=== PATIENT | male | born 1950 | race Caucasian/White ===

== ENCOUNTER 2017-04-24 06:13 | Day surgery (SDC) | payer OTHER, BC ==
[2017-04-23 12:48] VITALS: BMI 29.1
[2017-04-24 06:55] VITALS: TEMP 97.7
[2017-04-24] MEDS ORDERED: LIDOCAINE HCL 2% (20ML MULTI-DOSE VIAL) NR ONE (07:13)
[2017-04-24] MEDS ORDERED: MIDAZOLAM HCL 2 MG/2 ML SINGLE DOSE VIAL ONE (07:38)
[2017-04-24] MEDS ORDERED: PROPOFOL 20 ML ONE (07:43)
[2017-04-24] MEDS ORDERED: SUCCINYLCHOLINE CHLORIDE 200 MG/10 ML VIAL ONE (07:44)
[2017-04-24] MEDS ORDERED: LIDOCAINE HCL 2% (50ML VIAL) INF ONE (08:17)
[2017-04-24 08:30] VITALS: PULSE 58
[2017-04-24 08:51] VITALS: BP 110/70
--- NOTE | 2017-04-29 11:31 | OP ---
DATE OF OPERATION: 04/24/2017 PREOPERATIVE DIAGNOSIS: Left carpal tunnel syndrome. POSTOPERATIVE DIAGNOSIS: Left carpal tunnel syndrome. OPERATIVE PROCEDURE: Left carpal tunnel release. ANESTHESIA: Local with sedation. COMPLICATIONS: None. ESTIMATED BLOOD LOSS: Minimal. INDICATIONS FOR PROCEDURE: The patient is a 67-year-old male with the above findings indicated for operative treatment. Risks, benefits, and alternatives were discussed with the patient at length. Proper informed consent was obtained. DESCRIPTION OF PROCEDURE: After proper identification of patient and correct operative site, the patient was brought to the operating room and placed supine on the table with prominences well padded. Sedation was given by the anesthesiologist. Local anesthesia was given with 2% lidocaine. Left upper extremity was prepped and draped in a sterile fashion. A well-padded tourniquet was placed with sterile prep. Esmarch bandage used to exsanguinate the left upper extremity. Tourniquet was inflated to 250 mmHg. A longitudinal incision was made at the proximal aspect of the palm. Incision was taken sharply through the skin with sharp and blunt dissection in the subcutaneous tissues. Palmar fascia was divided longitudinally. The transverse carpal ligament was divided longitudinally along with the distal 4 cm of the antebrachial fascia under direct visualization with loupe magnification. This provided complete release of the median nerve at the wrist. The wound was irrigated with copious amounts of normal saline and repaired with a 5-0 nylon suture. Sterile dressings were applied. The patient was reversed from anesthesia and brought to the recovery room in stable condition. He tolerated the procedure well. Martha [id number]
--- NOTE | 2017-04-29 20:29 | OP ---
DATE OF OPERATION: 04/24/2017 PREOPERATIVE DIAGNOSIS: Left carpal tunnel syndrome. POSTOPERATIVE DIAGNOSIS: Left carpal tunnel syndrome. OPERATIVE PROCEDURE: Left carpal tunnel release. ANESTHESIA: Local sedation. COMPLICATIONS: None. ESTIMATED BLOOD LOSS: Minimal. INDICATION FOR PROCEDURE: The patient is a 67-year-old male with above findings indicated for operative treatment. Risks, benefits, and alternatives were discussed with patient at length and proper informed consent was obtained. PROCEDURE: After proper identification of the patient and correct operative site, patient was brought to the operating room and placed supine on the operating table, all bony prominences well padded. Sedation was given by the anesthesiologist. Local anesthesia was given 2% lidocaine. Left upper extremity was prepped and draped in the usual sterile fashion. Well-padded tourniquet was placed with a sterile prep. Esmarch bandage to exsanguinate the left upper extremity. Tourniquet inflated to 250 mmHg. Longitudinal incision made proximal aspect of the palm. Incision was taken sharply through the skin with blunt and sharp dissection through subcutaneous tissues. Palmar fascia was divided longitudinally. Transverse carpal ligament divided longitudinally. This was done along with the distal 4 cm of anterior radial fascia and the entire procedure was performed under direct visualization with loop magnification. This provided complete release of the median nerve at the wrist. Wound was irrigated with saline and repaired with a 5-0 nylon suture. Sterile dressings were applied. The patient was reversed from anesthesia and brought to the recovery room in stable condition. He tolerated the procedure well. CAROL ANN PETTY M.D. [id number]
== END 2017-04-24 09:34 | disposition home or self-care (01) ==
LOC: FASU 06:13
PROVIDERS: ATTEND Orthopaedic Surgery Hand Surgery
PROC: 01N50ZZ Release Median Nerve, Open Approach (ICD-10-PCS; principal; 2017-04-24 08:02)
DX: G56.02 Carpal tunnel syndrome, left upper limb (principal)

== ENCOUNTER 2017-12-31 06:08 | Day surgery (SDC) | payer OTHER, BC ==
[2017-12-26 10:53] VITALS: BMI 29.1
[2017-12-31] MEDS ORDERED: TETRACAINE 0.5% OPHTH SOLN 2 ML BOTTLE ONE ×2 (07:11→09:11)
[2017-12-31] MEDS ORDERED: BACITRACIN 3.5 GM OPTHALMIC OINT TUBE ONE (07:11)
[2017-12-31] MEDS ORDERED: POVIDONE-IODINE 5% OPHTHALMIC PREP 30 ML SOLUTION ONE (07:12)
[2017-12-31] MEDS ORDERED: BUPIVACAINE HCL/PF 0.5% (5MG/ML) 10 ML VIAL ONE (07:12)
[2017-12-31] MEDS ORDERED: LIDOCAINE 1%/EPI 1:100000 (20 ML MULTI DOSE VIAL) ONE (07:12)
[2017-12-31] MEDS ORDERED: MIDAZOLAM HCL 2 MG/2 ML SINGLE DOSE VIAL ONE (07:27)
[2017-12-31] MEDS ORDERED: PROPOFOL 20 ML ONE ×7 (07:32→09:32)
[2017-12-31] MEDS ORDERED: SUCCINYLCHOLINE CHLORIDE 200 MG/10 ML VIAL ONE (07:32)
[2017-12-31] MEDS ORDERED: ceFAZolin SODIUM 1 GM VIAL ONE (08:02)
[2017-12-31] MEDS ORDERED: ONDANSETRON 4 MG/2 ML VIAL ONE (08:13)
[2017-12-31] MEDS ORDERED: DEXAMETHASONE SOD PHOSPHATE 4 MG/1 ML VIAL ONE (08:13)
[2017-12-31] MEDS ORDERED: GLYCOPYRROLATE 0.2 MG/1 ML VIAL ONE (08:16)
[2017-12-31] MEDS ORDERED: oxyCODONE HCL 5 MG TABLET PO PRN (09:58)
[2017-12-31] MEDS ORDERED: ONDANSETRON 4 MG/2 ML VIAL IVPUSH PRN (09:58)
[2017-12-31] MEDS ORDERED: LACTATED RINGERS SOLUTION 1,000 ML IV SCH (10:00)
--- NOTE | 2017-12-31 10:33 | OP ---
DATE OF OPERATION: 12/31/2017 PREOPERATIVE DIAGNOSES: Ptosis, involutional recurrence, bilateral upper lids, interfering with vision, difficulty keeping his eyes open per patient report. POSTOPERATIVE DIAGNOSES: Ptosis, involutional recurrence, bilateral upper lids, interfering with vision, difficulty keeping his eyes open per patient report. PROCEDURE: 1. Levator advancement and reattachment, right upper lid. 2. Levator advancement and reattachment, left upper lid. SURGEON: Daniele Roberson MD ANESTHESIA: Local with sedation. COMPLICATIONS: None. ESTIMATED BLOOD LOSS: 2 mL DESCRIPTION OF OPERATION: Patient brought to the operating room, placed on the operating room table. Vital signs monitored by Anesthesia. Tetracaine was placed in both eyes. Lid crease was marked symmetrically, approximately 10 mm for the lash line, curving in a curvilinear fashion. Timeout was performed. Intravenous sedation was administered. Tetracaine was placed in both eyes and 2% xylocaine and 1:100,000 epinephrine was injected in both upper lids for a total of 0.5 mL. Massage was applied for hemostasis and dispersion of anesthetic. Patient was prepped and draped in usual sterile fashion, exposing both eyes. The follow procedure was performed bilaterally. The lid crease was incised with a 15 blade through skin and subcutaneous tissue. Mcminn needle was used to incise through scar tissue, and the septum was widely open. The septum was somewhat thickened in both eyes. The preaponeurotic fat was retracted, and the levator aponeurosis and muscle were identified. It was from the anterior-superior tarsus, dissected down under the orbicularis, freeing the superior tarsus. Levator was then reattached to the superior tarsus in a partial-thickness bite of 6-0 Vicryl suture in a mattress fashion, and these were removed and replaced until a reasonable contour and lid height above the visual was obtained. There was more swelling in the soft tissues of the left eye than in the right eye, and therefore, the left eye appeared slightly lowered than the right upon completion, but this could not be further adjusted due to swelling of the tissues. Meticulous hemostasis was obtained. Antibiotic irrigation was used throughout the case. The Vicryls were tied. The patient had been allowed to wake up from anesthetic and placed in the upright position to assess the position of the . However, he never fully woke up from the anesthetic affect, and therefore, it was difficult to accurately estimate the correct position of both eyes due to the complications of an incomplete recovery from anesthesia and also more asymmetric swelling of the soft tissues. The Vicryls were tied. The lids were everted, demonstrating no penetration of suture and a small amount of supplemental anesthetic was given in the subcutaneous tissues around the incisions, 2% Xylocaine and 1:100,000 epinephrine to further anesthetize them. He was given more sedation, and the wounds were closed with running 6-0 plain suture. Bacitracin was placed in the eyes, around the sutures of both upper lids, and the patient was taken to the recovery room in stable condition. DANIELE ROBERSON M.D. [id number]
[2017-12-31 10:40] VITALS: TEMP 97.4
[2017-12-31 11:32] VITALS: BP 135/82; PULSE 81
== END 2017-12-31 11:55 | disposition home or self-care (01) ==
LOC: FASU 06:08
PROVIDERS: ATTEND Ophthalmology
PROC: 08SN0ZZ Reposition Right Upper Eyelid, Open Approach (ICD-10-PCS; 2017-12-31)
PROC: 08SP0ZZ Reposition Left Upper Eyelid, Open Approach (ICD-10-PCS; principal; 2017-12-31 08:18)
DX: H02.403 Unspecified ptosis of bilateral eyelids (principal)
CPT/HCPCS: 82962; 94760

== ENCOUNTER 2018-10-21 07:28 | Day surgery (SDC) | payer OTHER, BC ==
[2018-10-13 13:36] VITALS: BMI 29.5
[2018-10-21] MEDS ORDERED: TETRACAINE 0.5% OPHTH SOLN 2 ML BOTTLE ONE (10:45)
[2018-10-21] MEDS ORDERED: POVIDONE-IODINE 5% OPHTHALMIC PREP 30 ML SOLUTION ONE (10:45)
[2018-10-21] MEDS ORDERED: BUPIVACAINE HCL/PF 0.5% (5MG/ML) 10 ML VIAL ONE (10:45)
[2018-10-21] MEDS ORDERED: ERYTHROMYCIN 0.5% OPHTHALMIC OINTMENT 3.5 GM TUBE ONE (10:45)
[2018-10-21] MEDS ORDERED: LIDOCAINE 1%/EPI 1:100000 (20 ML MULTI DOSE VIAL) ONE (10:46)
[2018-10-21] MEDS ORDERED: MIDAZOLAM HCL 2 MG/2 ML SINGLE DOSE VIAL ONE (11:29)
[2018-10-21] MEDS ORDERED: DEXMEDETOMIDINE HCL 200 MCG/2 ML ML IVPB ONE (11:29)
[2018-10-21] MEDS ORDERED: THROMBIN (RECOMBINANT) 5,000 UNIT VIAL TP ONE ×2 (11:50→11:51)
[2018-10-21] MEDS ORDERED: TETRACAINE 0.5% OPHTH SOLN 2 ML BOTTLE OD ONE (12:04)
[2018-10-21] MEDS ORDERED: ERYTHROMYCIN 0.5% OPHTHALMIC OINTMENT 3.5 GM TUBE OD ONE ×2 (12:19→12:40)
[2018-10-21] MEDS ORDERED: THROMBIN (BOVINE) 5,000 UNIT VIAL TP ONE (12:22)
[2018-10-21] MEDS ORDERED: ONDANSETRON 4 MG/2 ML VIAL IVPUSH PRN (12:49)
[2018-10-21] MEDS ORDERED: oxyCODONE HCL 5 MG TABLET PO PRN ×2 (12:49)
[2018-10-21] MEDS ORDERED: PROMETHAZINE HCL 25 MG/1 ML VIAL IVPUSH PRN (12:49)
[2018-10-21 13:48] VITALS: PULSE 55; TEMP 97.4
--- NOTE | 2018-10-21 15:30 | OP ---
DATE OF OPERATION: 10/21/2018 PREOPERATIVE DIAGNOSES: Involutional entropion, right lower lid with secondary keratitis. POSTOPERATIVE DIAGNOSES: Involutional entropion, right lower lid with secondary keratitis. PROCEDURE: 1. Lateral tarsal strip, right lower lid. 2. Transconjunctival plication of retractors, right lower lid. 3. Orbicularis flap excision, right lower lid. SURGEON: Daniele Roberson MD ANESTHESIA: Local with sedation. COMPLICATIONS: None. ESTIMATED BLOOD LOSS: 5 mL DESCRIPTION OF OPERATION: Patient was brought to the operating room, placed on the operating room table. Vital signs were monitored by Anesthesia. Tetracaine was placed in both eyes. Timeout was performed. Lateral canthal angle was marked, right lateral canthus, and after intravenous sedation was administered, a 50/50 mixture of 2% Xylocaine with 1:100,000 epinephrine and 0.5% Marcaine was injected subcutaneously in the right lateral canthus down to periosteum and subconjunctivally along the inferior tarsus for 2-3 mL. The patient was prepped and draped in usual sterile fashion exposing both eyes. Lateral canthal incision was made in the right lateral canthus and carried down to the orbital rim with a [place] needle. The inferior anabella of the lateral canthal tendon was from the orbital rim with sharp dissection and [place] needle. Lid was overlapped, marked with a sterile marking pen, divided into an anterior and posterior lamella. The anterior lamella was excised. The posterior lamella was denuded of epithelium posteriorly and superiorly with Katie and a number 11 blade, and the lateral tarsal strip was overlapped, was then secured to the internal surface of the orbital rim with a double-arm 5-0 Prolene, reinforced with a 6-0 Vicryl suture in the lasso fashion. It was not tied at this point, and 4-0 silk traction stitch was passed through the central lid margin. Lid was everted over a Desmarres retractor. Transconjunctival incision was made across the lid from punctum to lateral canthus to the conjunctival retractors, and dissection was carried down along the postorbicularis fascia. Tarsus was from the pretarsal orbicularis with [place] needle, and then, a partial-thickness orbicularis was removed and submitted for pathologic study along the inferior tarsal border. Cautery was also placed. Then, the retractors were then plicated to the anterior inferior tarsus with 4 buried 6-0 Vicryl sutures, plicating the retractors and closing the conjunctiva at the same time. The lateral canthal angle was performed with a buried 5-0 chromic through the ngo line of the upper and lower lid. The tarsal strip was then attached with the Prolene and tied. Cautery was used for hemostasis. Antibiotic irrigation was used throughout the case. Muscle layer was closed with 5-0 chromic, and the skin was closed with running 6-0 plain suture. Erythromycin ointment was placed in the eye and the lateral canthus, and the patient was taken to recovery room in stable condition. DANIELE ROBERSON M.D. [id number]
[2018-10-21 15:42] VITALS: BP 113/60
--- NOTE | 2018-10-24 19:48 | PATH ---
Surgical Pathology Report Patient Name: RAULITO ANSARI Med. Rec. #: [id number] /Age/Gender: 1950 (Age: 68) / M Account: [id number] Location: [facility] Taken: 10/21/2018 Received: 10/21/2018 Reported: 10/24/2018 Physicians: Norm Goodman Specimen(s) Received RIGHT LOWER EYELID Clinical History Ectropion right lower eyelid Final Diagnosis INNER LOWER EYELID, RIGHT, ENTROPION REPAIR: SKELETAL MUSCLE AND FIBROCONNECTIVE TISSUE. Electronically Signed Alice Nolen M.D. Gross Description Received in formalin labeled "right inner lower eyelid," is a 0.3 x 0.2 x 0.1 cm da silva skin fragment. The specimen is submitted in toto in one cassette. 10/23/201810/23/2018
== END 2018-10-21 14:15 | disposition home or self-care (01) ==
LOC: FASU 07:28
PROVIDERS: ATTEND Ophthalmology
PROC: 08SQ0ZZ Reposition Right Lower Eyelid, Open Approach (ICD-10-PCS; principal; 2018-10-21 12:09)
DX: H02.002 Unspecified entropion of right lower eyelid (principal); H16.9 Unspecified keratitis
CPT/HCPCS: 82962; 88304-TC; 94760

== ENCOUNTER 2019-05-03 13:04 | Emergency (ER) | payer OTHER, BC ==
[2019-05-03 13:29] VITALS: BP 142/88; PULSE 76; TEMP 98.5; BMI 28.5
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
[2019-05-03 14:08] LABS: BASO % 0.3 % (0-2.0); EOS % 1.7 % (0-4.5); HEMATOCRIT 42.5 % (35.4-49); LYMPH % 12.4 % (8-40); MCH 30.9 pg (25.7-33.7); MEAN CELL VOLUME 93.7 fl (80-96); MEAN PLT VOLUME 7.5 fl (7.5-11.1); MONO % 6.8 % (3.8-10.2); NEUT % 78.8 % (42.8-82.8); PLATELET COUNT 177 K/MM3 (134-434); RBC 4.53 M/mm3 (4.00-5.60); RDW 12.8 % (11.9-15.9); WHITE BLOOD COUNT 7.2 K/mm3 (4.0-10.8)
[2019-05-03 14:26] LABS: ACTIVATED PTT 26.6 SECONDS (25.2-36.5); ALBUMIN 4.3 g/dl (3.4-5.0); BILIRUBIN,TOTAL 1.2 mg/dl (0.2-1); CALCIUM 9.5 mg/dl (8.5-10); CREATININE 1.4 mg/dl (0.55-1.3); POTASSIUM 4.1 mmol/L (3.5-5.1)
[2019-05-03 14:31] LABS: INR 1.14 (0.82-1.09); PROTHROMBIN TIME (PATIENT) 12.7 SEC (10.2-13.0)
[2019-05-03] MEDS ORDERED: SODIUM CHLORIDE 0.9% 1000 ML INFUS.BAG IV ONE (14:39)
== END 2019-05-03 16:35 | disposition home or self-care (01) ==
LOC: FER 13:04
PROC: 3E0337Z Introduction of Electrolytic and Water Balance Substance into Peripheral Vein, Percutaneous Approach (ICD-10-PCS; principal; 2019-05-03)
PROC: 2W3KX1Z Immobilization of Left Finger using Splint (ICD-10-PCS; 2019-05-03)
DX: S63.251A Unspecified dislocation of left index finger, initial encounter (principal); S20.219A Contusion of unspecified front wall of thorax, initial encounter; V43.52XA Car driver injured in collision with other type car in traffic accident, initial encounter; Y93.89 Activity, other specified; Y92.488 Other paved roadways as the place of occurrence of the external cause; S30.811A Abrasion of abdominal wall, initial encounter; I10 Essential (primary) hypertension; K21.9 Gastro-esophageal reflux disease without esophagitis; E11.9 Type 2 diabetes mellitus without complications; Z87.2 Personal history of diseases of the skin and subcutaneous tissue
CPT/HCPCS: 36415; 71101-TC-LT-FY; 73130-TC-LT-FY; 73140-TC-LT-FY; 74177-TC; 80053; 85025; 85610; 85730; 99283-25; J7030

== ENCOUNTER 2020-01-13 07:23 | Day surgery (SDC) | payer OTHER, BC ==
[2020-01-12 10:19] VITALS: BMI 29.2
[2020-01-13] MEDS: CIPROFLOXACIN 0.3% EYE DROPS 5 ML BOTTLE ONE ×3 (08:00→08:10)
[2020-01-13] MEDS: TROPICAMIDE 1% OPHTH SOLN 15 ML BOTTLE ONE ×3 (08:00→08:10)
[2020-01-13] MEDS: PHENYLEPHRINE 2.5% OPHTH SOLN 15 ML BOTTLE ONE ×3 (08:00→08:10)
[2020-01-13] MEDS: CYCLOPENTOLATE 2% OPHTH SOLN 2 ML BOTTLE ONE ×3 (08:00→08:10)
[2020-01-13] MEDS ORDERED: CARBACHOL 0.01% INTRA-OCULAR 1.5 ML VIAL ONE (10:00)
[2020-01-13] MEDS ORDERED: BSS (NA/CA/MG/K) BALANCED SALT SOLUTION OPHTH SOLN 15 ML BOTTLE ONE (10:00)
[2020-01-13] MEDS ORDERED: NEO/POLYMYX B SULF/DEXAMETH OPHTHALMIC 5ML BOTTLE ONE (10:00)
[2020-01-13] MEDS ORDERED: LIDOCAINE 1% P/F 10 MG/ML VIAL ONE (10:00)
[2020-01-13] MEDS ORDERED: MIDAZOLAM HCL 2 MG/2 ML SINGLE DOSE VIAL ONE ×2 (10:20→10:25)
[2020-01-13 10:52] VITALS: TEMP 98.2
[2020-01-13 11:19] VITALS: BP 135/89; PULSE 65
--- NOTE | 2020-01-13 23:32 | OP ---
DATE OF OPERATION: 01/13/2020 OPERATIVE PROCEDURE: Lens Phacoemulsification with Posterior Chamber Intraocular Lens Placement Left Eye PREOPERATIVE DIAGNOSIS: Visually Significant Cataract of Left Eye POSTOPERATIVE DIAGNOSIS: Visually Significant Cataract of Left Eye SURGEON: Zeeshan Marcelo M.D. ANESTHESIA: MAC PROCEDURE: The patient was brought to the operating room and placed under monitored anesthesia care by Anesthesia. A drop of Tetracaine was then placed over the left eye. The patient was then prepped and draped in the usual sterile manner. A speculum was then placed over the left eye. The eye was then well irrigated with copious amounts of BSS (balanced salt solution). The operating microscope was then moved into position. A paracentesis was performed using a 15 degree blade. At this point 0.5 mL of 1% preservative-free lidocaine was injected into the anterior chamber. Amvisc plus was then injected into the anterior chamber. A clear corneal incision was then formed using a 2.2 mm keratome. A capsulorrhexis was then performed in a continuous circular fashion beginning with a cystotome, completed with an Utratas forceps. Hydrodissection was then performed using BSS on a cannula. The phaco probe was then introduced through the corneal wound and the cataract was removed using the phaco chop technique. Approximately 3 seconds of absolute phaco time was used. The remaining cortex was then removed using irrigation and aspiration with an I/A probe. The capsule was then filled with regular Amvisc and the capsule was noted to be intact. A previously selected foldable posterior chamber intraocular lens was then injected into the capsule through the corneal wound using a lens injector. It was then dialed into position using a Sinskey hook. The Amvisc was then removed using irrigation and aspiration. Miostat was then injected through the paracentesis to constrict the pupil. The paracentesis and corneal wound were then hydrated and noted to be water tight. A drop of Maxitrol was then placed over the eye. The speculum was removed and clear shield was taped over the eye. The patient tolerated the procedure well and there were no surgical complications. The patient was asked to follow up in my office the next day. ZEESHAN MARCELO M.D. [id number]
== END 2020-01-13 11:30 | disposition home or self-care (01) ==
LOC: FASU 07:23
PROVIDERS: ATTEND Ophthalmology
PROC: 08RK3JZ Replacement of Left Lens with Synthetic Substitute, Percutaneous Approach (ICD-10-PCS; principal; 2020-01-13 10:27)
DX: H26.8 Other specified cataract (principal)
CPT/HCPCS: 82962

== ENCOUNTER 2020-05-04 09:20 | Day surgery (SDC) | payer OTHER, BC ==
[2020-05-02 15:19] VITALS: BMI 28.7
[2020-05-04] MEDS: TROPICAMIDE 1% OPHTH SOLN 15 ML BOTTLE ONE ×3 (09:35→09:45)
[2020-05-04] MEDS: CIPROFLOXACIN 0.3% EYE DROPS 5 ML BOTTLE ONE ×3 (09:35→09:45)
[2020-05-04] MEDS: CYCLOPENTOLATE 2% OPHTH SOLN 2 ML BOTTLE ONE ×3 (09:35→09:45)
[2020-05-04] MEDS: PHENYLEPHRINE 2.5% OPHTH SOLN 15 ML BOTTLE ONE ×3 (09:35→09:45)
[2020-05-04] MEDS ORDERED: BSS (NA/CA/MG/K) BALANCED SALT SOLUTION OPHTH SOLN 15 ML BOTTLE ONE (09:48)
[2020-05-04] MEDS ORDERED: NEO/POLYMYX B SULF/DEXAMETH OPHTHALMIC 5ML BOTTLE ONE (09:48)
[2020-05-04] MEDS ORDERED: LIDOCAINE 1% P/F 10 MG/ML VIAL ONE (09:48)
[2020-05-04] MEDS ORDERED: TETRACAINE 0.5% OPHTH SOLN 2 ML BOTTLE ONE (09:48)
[2020-05-04] MEDS ORDERED: CARBACHOL 0.01% INTRA-OCULAR 1.5 ML VIAL ONE (09:48)
[2020-05-04] MEDS ORDERED: MIDAZOLAM HCL 2 MG/2 ML SINGLE DOSE VIAL ONE (10:01)
[2020-05-04 11:04] VITALS: TEMP 98.2
[2020-05-04 11:06] VITALS: BP 133/87; PULSE 71
--- NOTE | 2020-05-05 09:59 | OP ---
DATE OF OPERATION: 05/04/2020 OPERATIVE PROCEDURE: Lens phacoemulsification with posterior chamber intraocular lens placement, right eye. PREOPERATIVE DIAGNOSIS: Visually significant cataract of right eye. POSTOPERATIVE DIAGNOSIS: Visually significant cataract of right eye. SURGEON: Zeeshan Marcelo MD ANESTHESIA: MAC. PROCEDURE: The patient was brought to the operating room and placed under monitored anesthesia care by Anesthesia. A drop of tetracaine was then placed over the right eye. The patient was then prepped and draped in the usual sterile manner. A speculum was then placed over the right eye. The eye was then well irrigated with copious amounts of BSS (balanced salt solution). The operating microscope was then moved into position. A paracentesis was performed using a 15-degree blade. At this point 0.5 mL of 1% preservative-free lidocaine was injected into the anterior chamber. Amvisc Plus was then injected into the anterior chamber. A clear corneal incision was then formed using a 2.2-mm keratome. A capsulorrhexis was then performed in a continuous circular fashion beginning with a cystotome completed with an Utratas forceps. Hydrodissection was then performed using BSS on a cannula. The phaco probe was then introduced through the corneal wound and the cataract was removed using the phaco chop technique. Approximately 3 seconds of absolute phaco time was used. The remaining cortex was then removed using irrigation and aspiration with an I/A probe. The capsule was then filled with regular Amvisc and the capsule was noted to be intact. A previously selected foldable posterior chamber intraocular lens was then injected into the capsule through the corneal wound using a lens injector. It was then dialed into position using a Sinskey hook. The Amvisc was then removed using irrigation and aspiration. Miostat was then injected through the paracentesis to constrict the pupil. The paracentesis and corneal wound were then hydrated and noted to be watertight. A drop of Maxitrol was then placed over the eye. The speculum was removed and clear shield was taped over the eye. The patient tolerated the procedure well and there were no surgical complications. The patient was asked to follow up in my office the next day. ZEESHAN MARCELO M.D. [id number]
== END 2020-05-04 11:30 | disposition home or self-care (01) ==
LOC: FASU 09:20
PROVIDERS: ATTEND Ophthalmology
PROC: 08RJ3JZ Replacement of Right Lens with Synthetic Substitute, Percutaneous Approach (ICD-10-PCS; principal; 2020-05-04 10:15)
DX: H26.8 Other specified cataract (principal); E11.9 Type 2 diabetes mellitus without complications; I10 Essential (primary) hypertension
CPT/HCPCS: 82962